=== PATIENT | female | born 1975 | race Caucasian/White ===

== ENCOUNTER 2024-06-05 21:12 | Emergency (ER) | payer OTHER ==
[~2024-06-05] VITALS: Ht 157.5 cm; Wt 105.0 kg
[~2024-06-05 21:12] MED LIST: BENZONATATE100 MG PO; BUPROPION HCL100 MG PO; CLARITIN10 M2 PO; DULOXETINE HCL60 MG PO; LIPITOR20 MG PO; LISINOPRIL20 MG PO; MELOXICAM15 MG PO; OMEPRAZOLE20 MG PO; PAXLOVID 300-11 EACH PO; PROPRANOLOL HCL40 MG PO; TRULICITY1.5 MG/0.5 SQ
[2024-06-05] MEDS ORDERED: VENTOLIN HFA18 GM (21:34)
[2024-06-05] MEDS ORDERED: BETAMETHASONE D15 G3 (21:34)
[2024-06-05] MEDS ORDERED: RIZATRIPTAN10 M1 PO (21:34)
[2024-06-05] MEDS ORDERED: TOPIRAMATE50 MG (21:35)
[2024-06-05 21:42] LABS: BILIRUBIN, URINE NEGATIVE (negative); BLOOD/HGB, URINE SMALL (Negative); KETONE, URINE NEGATIVE (Negative); LEUK ESTERASE, URINE MODERATE (negative); NITRITE, URINE NEGATIVE (negative)
[2024-06-05 21:47] LABS: BASOPHILS 0.3 % (0-2); EOSINOPHILS 0.5 % (0-6); HEMATOCRIT 39.9 % (35.0-50.0); HEMOGLOBIN 13.8 g/dL (12.0-18.0); MCH 30.1 (27-36); MCHC 34.5 g/dl (30-36); MCV 87.1 fl (81-99); MONOCYTES 9.2 % (0-12); PLATELET COUNT 196 K/uL (140-440); RBC 4.58 M/ul (4.3-5.7)
[2024-06-05 21:48] LABS: BACTERIA, URINE 1+ /hpf (negative); CASTS, URINE NONE SEEN \\lpf; CRYSTALS, URINE NONE SEEN (0-1+); EPITHELIAL CELLS, URINE SQUAMOUS 1+ /lpf (0-1+); WHITE BLOOD CELLS, URINE 41-50 /HPF (0-5)
[2024-06-05 21:49] LABS: COLLECTION TYPE, URINE CLEAN CATCH; REFLEX CULTURE, URINE Yes (No)
[2024-06-05 22:04] LABS: ALBUMIN 3.1 g/dL (3.4-5.0); ALBUMIN/GLOBULIN RATIO 0.7 (1.1-2.4); ANION GAP 12.4 (7-21); BILIRUBIN, TOTAL 1.3 mg/dL (0.2-1.0); BUN/CREATININE RATIO 9.7 (6.0-28.6); CALCIUM 8.9 mg/dL (8.5-10.1); CREATININE, SERUM 1.03 mg/dL (0.55-1.02); POTASSIUM 3.4 mmol/L (3.5-5.1); PROTEIN, TOTAL 7.5 g/dL (6.4-8.2)
[2024-06-05] MEDS ORDERED: PYRIDIUM200 MG PO (22:25)
[2024-06-05] MEDS ORDERED: CEFDINIR300 MG PO (22:25)
[2024-06-05] MEDS ORDERED: CEFDINIR 300 MG HOME.PACK PO ONE (22:30)
[2024-06-05] MEDS ORDERED: PHENAZOPYRIDINE HCL 100 MG TAB PO ONE (22:30)
[2024-06-05 22:52] VITALS: BP 106/68
== END 2024-06-05 22:52 | disposition home or self-care (01) ==
LOC: ED 21:12
PROVIDERS: Family Medicine
DX: N39.0 Urinary tract infection, site not specified (principal); E11.9 Type 2 diabetes mellitus without complications; I10 Essential (primary) hypertension; E78.5 Hyperlipidemia, unspecified; Z79.85 Long-term (current) use of injectable non-insulin antidiabetic drugs; Z79.899 Other long term (current) drug therapy
CPT/HCPCS: 36415; 80053; 81001; 85025; 87088; 87186; 99284

== ENCOUNTER 2024-07-02 19:33 | Emergency (ER) | payer OTHER | END 2024-07-02 23:35 | disposition home or self-care (01) | LOC: ED 19:33 | DX: E11.9 Type 2 diabetes mellitus without complications (principal); N39.0 Urinary tract infection, site not specified; E78.5 Hyperlipidemia, unspecified; I10 Essential (primary) hypertension; K21.9 Gastro-esophageal reflux disease without esophagitis; G47.33 Obstructive sleep apnea (adult) (pediatric); Z79.2 Long term (current) use of antibiotics; Z79.899 Other long term (current) drug therapy ==

== ENCOUNTER 2024-12-12 20:14 | Emergency (ER) | payer OTHER ==
[~2024-12-12] VITALS: Ht 157.5 cm; Wt 105.0 kg
--- OUTSIDE RECORDS SUMMARY | ~2024-12-12 | XMS | Continuity of Care Document ---
Demographics + + + | Address | [address] | | | [place] [address] | + + + | Preferred Language | Unknown | + + + | Marital Status | Never | + + + | Religion Affiliation | Unknown | + + + | Race | White | + + + | Ethnic Group | Not or | + + + Author + + + | Author | [facility] | + + + | Organization | [facility] | + + + | Address | [address] | | | [place] [address] | + + + | Phone | | + + + Care Team Providers + + + + | Care Java Groovy Developer Name | Role | Phone | + + + + Unavailable | Unavailable | + + + + Unavailable | Unavailable | + + + + Allergies and Intolerances + + + + + + | date | description | facility | reaction | severity | + + + + + + | 2024-10-01 | | [facility] - | Rash | Mild | | 00:00 | Hydroxychloroqu | [facility] | | | + + + + + + | 2024-10-01 | | [facility] - | Rash | Mild | | 00:00 | Hydroxychloroqu | [facility] | | | + + + + + + | 2024-10-01 | | [facility] - | Rash | Mild | | 00:00 | Hydroxychloroqu | [facility] | | | + + + + + + Encounters No information. Functional Status No information. Immunizations No information. Medications + + + + | date | description | facility | + + + + | (no date) | PILOCARPINE HCL | [facility] | | | | [facility] | + + + + | (no date) | TOPIRAMATE | [facility] | | | | [facility] | + + + + | (no date) | MELOXICAM | [facility] | | | | [facility] | + + + + | (no date) | NITROFURANTOIN | [facility] | | | MACROCRYSTAL | [facility] | + + + + | (no date) | METHOTREXATE SODIUM/PF | [facility] | | | | [facility] | + + + + | (no date) | OMEPRAZOLE | [facility] | | | | [facility] | + + + + | (no date) | ASCORBIC ACID | [facility] | | | | [facility] | + + + + | (no date) | Cholecalciferol (Vitamin | [facility] | | | D3) | [facility] | + + + + | (no date) | Dulaglutide | [facility] | | | | [facility] | + + + + | (no date) | Cholecalciferol (Vitamin | [facility] | | | D3) | [facility] | + + + + | (no date) | MAGNESIUM OXIDE | [facility] | | | | [facility] | + + + + | (no date) | Glycerin | [facility] | | | | [facility] | + + + + | (no date) | FOLIC ACID | [facility] | | | | [facility] | + + + + | (no date) | RIZATRIPTAN BENZOATE | [facility] | | | | [facility] | + + + + | (no date) | LISINOPRIL | [facility] | | | | [facility] | + + + + | (no date) | DULOXETINE HCL | [facility] | | | | [facility] | + + + + | (no date) | DULOXETINE HCL | [facility] | | | | [facility] | + + + + | (no date) | ATORVASTATIN | [facility] | | | | [facility] | + + + + | (no date) | LORATADINE | [facility] | | | | [facility] | + + + + | (no date) | PROPRANOLOL HCL | [facility] | | | [facility] | + + + + | (no date) | ALBUTEROL SULFATE | [facility] | | | | [facility] | + + + + | (no date) | BUPROPION HCL | [facility] | | | | [facility] | + + + + Problems No information. Procedures + + + + | date | description | facility | + + + + | 2024-10-01 00:00 | Conization of cervix | [facility] | | | | [facility] | + + + + | 2024-10-01 00:00 | Conization of cervix | [facility] | | [facility] | + + + + Results/Labs +--------+--------+ +---------+--------+---------+ | test | date | facility | value | unit | notes | +--------+--------+ +---------+--------+---------+ + + | Result panel 1 | + + + + + +------+---------+ + | Glucose | 2024-09-28 | | 89 | mg/dL | (missing) | | [facility] | 15:20:07 | [facility] | | | | | | | - [facility] | | | | | | | [facility] | | | | + + + +------+---------+ + + + | Result panel 2 | + + + + + +------+---------+ + | BUN | 2024-09-28 | | 16 | mg/dL | (missing) | | [facility] | 15:20:07 | [facility] | | | | + + + +------+---------+ + + + | Result panel 3 | + + + + + +--------+---------+ + | Creat | 2024-09-28 | | 0.88 | mg/dL | (missing) | | Ser[facility] | 15:20:07 | [facility] | | | | + + + +--------+---------+ + + + | Result panel 4 | + + + + + +------+ + + | eGFRcr | 2024-09-28 | | 80 | (missing) | (missing) | | SerPlBld | 15:20:07 | [facility] | | | | | CKD-EPI 2020 | [facility] | | | | + + + +------+ + + + + | Result panel 5 | + + + + + +---------+ + + | BUN/Creat | 2024-09-28 | | 18.18 | (missing) | (missing) | | SerPl | 15:20:07 | [facility] | | | | + + + +---------+ + + + + | Result panel 6 | + + + + + +-------+ + + | Sodium | 2024-09-28 | | 140 | (missing) | (missing) | | [facility] | 15:20:07 | [facility] | [facility] | | | | + + + +-------+ + + + + | Result panel 7 | + + + + + +-------+ + + | Potassium | 2024-09-28 | | 3.9 | (missing) | (missing) | | SerPl-sCnc | 15:20:07 | [facility] | | | | + + + +-------+ + + + + | Result panel 8 | + + + + + +-------+ + + | Chloride | 2024-09-28 | | 106 | (missing) | (missing) | | SerPl-sCnc | 15:20:07 | [facility] | | | | + + + +-------+ + + + + | Result panel 9 | + + + + + +------+ + + | CO2 | 2024-09-28 | | 30 | (missing) | (missing) | | SerPl-sCnc | 15:20:07 | [facility] | | | | + + + +------+ + + + + | Result panel 10 | + + + + + +-------+ + + | Anion Gap | 2024-09-28 | | 7.9 | (missing) | (missing) | | SerPl | 15:20:07 | [facility] | | | | | Calculated.4 | [facility] | | | | + + + +-------+ + + + + | Result panel 11 | + + + + + +--------+ + + | WBC # Bld | 2024-09-28 | | 6.04 | (missing) | (missing) | | Auto | 15:20:07 | [facility] | | | | + + + +--------+ + + + + | Result panel 12 | + + + + + +-------+---------+ + | Calcium | 2024-09-28 | | 9.0 | mg/dL | (missing) | | SerPl-mCnc | 15:20:07 | [facility] | [facility] | | | | + + + +-------+---------+ + + + | Result panel 13 | + + + + + +-------+ + + | Prot | 2024-09-28 | | 7.0 | (missing) | (missing) | | [facility] | 15:20:07 | [facility] | | | | + + + +-------+ + + + + | Result panel 14 | + + + + + +-------+ + + | Albumin | 2024-09-28 | | 3.2 | (missing) | (missing) | | SerPl-mCnc | 15:20:07 | [facility] | | | | + + + +-------+ + + + + | Result panel 15 | + + + + + +-------+ + + | Globulin | 2024-09-28 | | 3.8 | (missing) | (missing) | | Ser-Hiram | 15:20:07 | [facility] | | | | + + + +-------+ + + + + | Result panel 16 | + + + + + +--------+ + + | | 2024-09-28 | | 0.84 | (missing) | (missing) | | Albumin/Glob | 15:20:07 | [facility] | | | | | SerPl | [facility] | | | | + + + +--------+ + + + + | Result panel 17 | + + + + + +-------+---------+ + | Bilirub | 2024-09-28 | | 0.6 | mg/dL | (missing) | | SerPl-mCnc | 15:20:07 | [facility] | | | | + + + +-------+---------+ + + + | Result panel 18 | + + + + + +------+ + + | AST | 2024-09-28 | | 15 | (missing) | (missing) | | SerPl-cCnc | 15:20:07 | [facility] | | | | + + + +------+ + + + + | Result panel 19 | + + + + + +------+ + + | ALT | 2024-09-28 | | 27 | (missing) | (missing) | | SerPl-cCnc | 15:20:07 | [facility] | | | | + + + +------+ + + + + | Result panel 20 | + + + + + +-------+ + + | ALP | 2024-09-28 | | 116 | (missing) | (missing) | | SerPl-cCnc | 15:20:07 | [facility] | | | | + + + +-------+ + + + + | Result panel 21 | + + + + + + + + + | HCG SerPl | 2024-09-28 | | NEGATIVE | (missing) | (missing) | | Ql | 15:20:07 | [facility] | | | | + + + + + + + + + | Result panel 22 | + + + + + +--------+ + + | RBC # Bld | 2024-09-28 | | 4.09 | (missing) | (missing) | | Auto | 15:20:07 | [facility] | | | | + + + +--------+ + + + + | Result panel 23 | + + + + + +--------+ + + | Hgb | 2024-09-28 | | 12.9 | (missing) | (missing) | | Bld-mCnc | 15:20:07 | [facility] | | | | + + + +--------+ + + + + | Result panel 24 | + + + + + +--------+ + + | Hct VFr.DF | 2024-09-28 | | 38.1 | (missing) | (missing) | | Bld Auto | 15:20:07 | [facility] | | | | + + + +--------+ + + + + | Result panel 25 | + + + + + +--------+ + + | RBC Auto | 2024-09-28 | | 93.2 | (missing) | (missing) | | | 15:20:07 | [facility] | | | | + + + +--------+ + + + + | Result panel 26 | + + + + + +--------+ + + | MCH RBC Qn | 2024-09-28 | | 31.5 | (missing) | (missing) | | Auto | 15:20:07 | [facility] | | | | + + + +--------+ + + + + | Result panel 27 | + + + + + +--------+ + + | MCHC RBC | 2024-09-28 | | 33.9 | (missing) | (missing) | | Auto-EntMCnc | 15:20:07 | [facility] | | | | + + + +--------+ + + + + | Result panel 28 | + + + + + +-------+ + + | Platelet # | 2024-09-28 | | 220 | (missing) | (missing) | | Bld Auto | 15:20:07 | [facility] | | | | + + + +-------+ + + + + | Result panel 29 | + + + + + +-------+ + + | Glucose | 2024-10-01 | | 103 | (missing) | (missing) | | [facility] | 06:30:07 | [facility] | | | | + + + +-------+ + + Social History + + + + | date | description | facility | + + + + | (no date) | Unknown if ever smoked | [facility] | | | [facility] | + + + + Vital Signs + + + +---------+ | date | measurement | value | units | + + + +---------+ | 2024-09-28 00:00 | BMI | 42.3 | kg/m2 | + + + +---------+ | 2024-09-28 00:00 | height_metric | 157.48 | cm | + + + +---------+ | 2024-09-28 00:00 | height_standard | 62 | in | + + + +---------+ | 2024-09-28 00:00 | weight_metric | 105 | kg | + + + +---------+ | 2024-09-28 00:00 | weight_standard | 231.49 | lb | + + + +---------+ | 2024-10-01 00:00 | BP_diastolic | 62 | mmHg | + + + +---------+ | 2024-10-01 00:00 | BP_systolic | 100 | mmHg | + + + +---------+ | 2024-10-01 00:00 | heart_rate | 71 | /min | + + + +---------+ | 2024-10-01 00:00 | o2_saturation | 96 | % | + + + +---------+ | 2024-10-01 00:00 | respiration_rate | 17 | /min | + + + +---------+ | 2024-10-01 00:00 | temperature_metric | 36.44 | C | | | | | | + + + +---------+ | 2024-10-01 00:00 | | 97.6 | F | | | temperature_standar | | | | | d | | | + + + +---------+"
[~2024-12-12 20:14] MED LIST changes: +BETAMETHASONE D15 G3; +CEFDINIR300 MG PO; +DULOXETINE HCL30 MG PO; +FOLIC ACID1 MG PO; +MACROBID 100 M100 MG PO; +MAGNESIUM400 MG PO; +METHOTREXA25 MG/1 M7 INJ; +NITROFURANTOIN100 MG PO; +OPTASE MGD ADVA10 ML OP; +PILOCARPINE HCL5 MG PO; +PYRIDIUM200 MG PO; +RIZATRIPTAN10 M1 PO; +TOPIRAMATE25 MG PO; +TOPIRAMATE50 MG PO; +TRULICITY3 MG/0.5 M SUB-Q; +VENTOLIN HFA18 GM INH; +VITAMIN C100 MG PO; +VITAMIN D3125 MC1 PO; +VITAMIN D325 MCG PO
[2024-12-12] MEDS ORDERED: VALACYCLOVIR1000 MG PO (21:12)
[2024-12-12] MEDS ORDERED: HYDROCODON-ACE1 EA10 PO (21:12)
[2024-12-12] MEDS ORDERED: PREGABALIN 75 MG CAP PO ONE (21:15)
[2024-12-12] MEDS ORDERED: methylPREDNISolone 4 MG HOME.PACK PO ONE (21:15)
[2024-12-12] MEDS ORDERED: HYDROCODONE BIT/ACETAMINOPHEN 5/325 MG 1 TAB HOME.PACK PO ONE (21:15)
[2024-12-12] MEDS ORDERED: VALACYCLOVIR HCL 500 MG TAB PO ONE (21:15)
[2024-12-12] MEDS ORDERED: LYRICA75 MG PO (21:17)
[2024-12-12 21:40] VITALS: BP 130/71
== END 2024-12-12 21:40 | disposition home or self-care (01) ==
LOC: ED 20:14
DX: B02.9 Zoster without complications (principal); I10 Essential (primary) hypertension; E11.9 Type 2 diabetes mellitus without complications; E78.5 Hyperlipidemia, unspecified; K21.9 Gastro-esophageal reflux disease without esophagitis; Z88.8 Allergy status to other drugs, medicaments and biological substances; Z79.899 Other long term (current) drug therapy
CPT/HCPCS: 99283; A9270

== ENCOUNTER 2025-01-27 09:28 | Day surgery (SDC) | payer OTHER ==
[~2025-01-27] VITALS: Ht 157.5 cm; Wt 106.0 kg
[~2025-01-27 09:28] MED LIST changes: +HYDROCODON-ACE1 EA10 PO; +IBLOOD GLUCOSE TEST STRIP 1 EA TEST VI PRN; +LACTATED RINGER'S 1,000 ML IV SCH; +LIDOCAINE HCL 1% 5 ML SDV INJ ONE; +LYRICA75 MG PO; +VALACYCLOVIR1000 MG PO
[2025-01-27 09:41] VITALS: BP 113/80
[2025-01-27] MEDS ORDERED: LIDOCAINE HCL 2% 5 ML SDV ONE (10:44)
--- NOTE | 2025-01-27 12:00 | NUR ---
01/27/25 1200 Sheets,Manjula 1149 PT ARRIVED TO PACU ON 6L VIA MASK, RESP EVEN AND UNLABORED AND PT ASLEEP. 1156 PT WOKE TO TACTILE STIMULI AND REORIENTED TO PACU, PT PASSING GAS OFF AND ON. PT DENIES CONCERNS.
[2025-01-27 12:16] VITALS: BP 115/60
--- NOTE | 2025-01-28 15:25 | OR ---
[facility] [address] [place], [place] [address] Signed DATE OF OPERATION: 01/27/2025 SURGEON: Ed Weldon DO PREOPERATIVE DIAGNOSIS: Colon cancer screening. POSTOPERATIVE DIAGNOSIS: Colon cancer screening with nonspecific colitis. PROCEDURE PERFORMED: Colonoscopy. ANESTHESIA: IV sedation. ESTIMATED BLOOD LOSS: None. DRAINS: None. COMPLICATIONS: None. DESCRIPTION OF PROCEDURE: The patient was brought to the GI lab and placed in the supine position. After induction of IV sedation, the patient was then placed in left lateral position, padded to the satisfaction of anesthesia. Olympus video colonoscope was then introduced into the rectum while insufflating and under direct visualization. The scope was then advanced into sigmoid colon, descending colon, transverse colon, ascending colon and into the cecum. The colon was then insufflated and exploration of the mucosal surfaces was carried out. The ascending colon and the cecum had no lesions or ulcerations. No intrinsic or extrinsic masses were appreciated. The scope was then brought back past the hepatic flexure into the transverse colon. No intrinsic or extrinsic masses. No lesions or ulceration were noted. The scope was then brought back into the descending colon. Some mild nonspecific colitis was noted in the descending colon, but no other intrinsic or extrinsic masses were appreciated. The scope was then brought back into the sigmoid colon and rectosigmoid. No intrinsic or extrinsic masses were appreciated, but some moderate nonspecific colitis was noted. No ulcerations were appreciated. Electronically Signed By: ED WELDON DO 01/27/25 1249 Electronically Signed By: ED WELDON DO 01/29/25 0829 PATIENT NAME: SUGAR LAURA OPERATIVE REPORT DATE OF : 71 REPORT #: [id number] PHYSICIAN: ED WELDON DO PCP: AQUILES GARCIA MD REPORT IS CONFIDENTIAL AND NOT TO BE RELEASED WITHOUT AUTHORIZATION [facility] [address] [place], [place] [address] Signed Scope was brought back into the rectum. Rectum was unremarkable. The scope was withdrawn. The patient tolerated the procedure well and taken to recovery room in satisfactory condition. Due to the negative nature of the colonoscopic exam examination within next 5 to 7 years. DO ODALIS Garcia/ARMANI /[id number] Copies: ~ Electronically Signed By: ED WELDON DO 01/27/25 1249 Electronically Signed By: ED WELDON DO 01/29/25 0829 PATIENT NAME: SUGAR LAURA OPERATIVE REPORT DATE OF : 71 REPORT #: [id number] PHYSICIAN: ED WELDON DO PCP: AQUILES GARCIA MD REPORT IS CONFIDENTIAL AND NOT TO BE RELEASED WITHOUT AUTHORIZATION
== END 2025-01-27 12:26 | disposition home or self-care (01) ==
LOC: OPS 09:28 → DS 09:28 → OPS 11:00 → DS 11:10 → OPS 12:26 → DS 12:30
PROVIDERS: ATTEND Surgery
PROC: 0DJD8ZZ Inspection of Lower Intestinal Tract, Via Natural or Artificial Opening Endoscopic (ICD-10-PCS; principal; 2025-01-27 11:00)
DX: Z12.11 Encounter for screening for malignant neoplasm of colon (principal); K52.9 Noninfective gastroenteritis and colitis, unspecified; G47.33 Obstructive sleep apnea (adult) (pediatric); E11.9 Type 2 diabetes mellitus without complications; I10 Essential (primary) hypertension; M79.7 Fibromyalgia; K21.9 Gastro-esophageal reflux disease without esophagitis; M06.9 Rheumatoid arthritis, unspecified; I73.00 Raynaud's syndrome without gangrene; M35.00 Sjogren syndrome, unspecified; E78.00 Pure hypercholesterolemia, unspecified; Z86.0109 Personal history of other colon polyps; Z80.0 Family history of malignant neoplasm of digestive organs; Z83.719 Family history of colon polyps, unspecified; Z79.1 Long term (current) use of non-steroidal anti-inflammatories (NSAID); Z79.631 Long term (current) use of antimetabolite agent; Z79.85 Long-term (current) use of injectable non-insulin antidiabetic drugs; Z79.899 Other long term (current) drug therapy; Z88.8 Allergy status to other drugs, medicaments and biological substances
CPT/HCPCS: 00811; J2003; J2704